=== PATIENT | female | born 1940 | race Caucasian/White ===

== ENCOUNTER 2019-02-26 22:51 | Emergency (ER) | payer MEDICARE ==
[2019-02-26] MEDS ORDERED: ACETAMINOPHEN 325 MG TABLET PO ONE (23:01)
[2019-02-27] MEDS ORDERED: MORPHINE SULFATE 10 MG/ML INJ IV ONE (02:17)
--- NOTE | 2019-02-27 02:23 | ER Document Report ---
ED General - General Chief Complaint: Hip Pain Stated Complaint: BACK PAIN Time Seen by Provider: 02/27/19 02:10 TRAVEL OUTSIDE OF THE [place] IN LAST 30 DAYS: No - HPI Notes: 78-year-old female presents with gradual onset 1 day of left lateral hip pain that radiates down her leg. Actually comes more from her buttocks and posterior hip region. Radiates down to her ankle. No current history of sciatica. Moderate intensity, sharp, nonradiating except as described. Over the course of the last several hours she is also developed bilateral lower quadrant and mid abdominal pain. Moderate intensity, cramping achy and sharp. No other modifying factors, no other associated symptoms, no other provocative or palliative factors. No associated vomiting or diarrhea. Triage note indicates she was incontinent but she indicates that she had use the bathroom and had difficulty getting there because of the pain and had to urinate on herself. No numbness or tingling. No other modifying factors, no other associated symptoms, no other provocative or palliative factors. - Related Data Allergies/Adverse Reactions: adhesive tape Adverse Reaction (Intermediate, Verified 02/27/19 00:58) Skin Redness Past Medical History - Social History Smoking Status: Never Smoker Family History: Reviewed & Not Pertinent Patient has suicidal ideation: No Patient has homicidal ideation: No - Medical History Notes: Includes prior kidney stones, hysterectomy Renal/ Medical History: Denies: Hx Peritoneal Dialysis Review of Systems - Review of Systems Notes: Review of systems as in the history of present illness, otherwise negative x 10 systems. Physical Exam - Vital signs Vitals: Temp Pulse Resp BP Pulse Ox 98.0 F 70 20 234/97 H 97 02/26/19 22:58 02/26/19 22:58 02/26/19 22:58 02/26/19 22:58 02/26/19 22:58 - Notes Notes: General: Well developed . HEENT: Normocephalic, atraumatic. Pupils equal round reactive to light. No JVD. Chest: No trauma. Respiratory: Good air exchange, normal excursion. Cardiac: Regular rhythm. No murmurs or gallops. Abdomen: Soft, benign. Mild to moderate bilateral lower quadrant tenderness. There is irritation in the pannus fold. Large pannus is noted. Back: No asymmetry or gross abnormality. No point vertebral tenderness, no CVAT. Motor: Grossly normal power and tone. Neurologic: Alert, nonfocal. Cranial nerves II-12 are intact. Sensation intact. Bilateral lower extremity sensation intact, DTRs 1+ symmetric. Vascular: Well perfused. Normal peripheral pulses. Skin: No petechiae or purpura. Course - Vital Signs Vital signs: Temp Pulse Resp BP Pulse Ox 98.0 F 70 20 206/79 H 98 02/26/19 22:58 02/26/19 22:58 02/26/19 22:58 02/27/19 06:02 02/27/19 06:02 - Laboratory Result Diagrams: 02/27/19 02:45 02/27/19 02:45 Laboratory results interpreted by me: 02/27/19 02/27/19 02/27/19 02:45 02:45 03:45 Plt Count 99 L Glucose 116 H Total Bilirubin 1.5 H AST 57 H Urine Protein 100 H Urine Blood SMALL H Ur Leukocyte Esterase SMALL H - Transfer of Care Notes: 02/27/19 02:21 Elderly female with the mentioned symptoms. With regard to her leg issues, appears to be a classic description of sciatica. Would consider occult hip fracture injury. Otherwise no high risk features to suggest cord compression or cord issue. Of concern however is her significantly uncontrolled hypertension in the face of abdominal pain and the other symptoms. Will consider vascular pathology such as dissection or aneurysm. Plan to proceed with laboratory evaluation, CT imaging, IV analgesics, plain films of the hip, reassess. Consider additionally pyelonephritis or renal stone. 02/27/19 06:20 Labs reviewed. CBC unremarkable, chemistries unremarkable. Urine shows no evidence of acute infection. Patient did undergo CT imaging to rule out dissection or AAA. There is no evide nce of vascular emergency. No evidence of intra-abdominal emergency. No evidence of stone or other infectious process. No evidence of hip fracture. Patient has had substantial improvement with analgesics. She will exam showed benign examination. Abdominal pain is improved. This point etiology is unclear, however, I think she is safe for discharge home with close outpatient follow-up. Will have a recheck 1224 hrs. Given a short course of analgesics for what appears to clinically be sciatica. With regard to her abdominal pain, continue to examination shows benign abdomen and as stated, CT imaging shows no acute abnormality. Discharge - Discharge Clinical Impression: Sciatica Qualifiers: Laterality: unspecified laterality Qualified Code(s): M54.30 - Sciatica, unspe cified side Abdominal pain Qualifiers: Abdominal location: unspecified location Qualified Code(s): R10.9 - Unspecified abdominal pain Condition: Stable Disposition: HOME, SELF-CARE Instructions: Abdominal Pain ([facility]), Sciatica ([facility]) Prescriptions: Tramadol HCl [Ultram 50 mg Tablet] 50 mg PO Q6 PRN #12 tablet PRN Reason:
[2019-02-27 03:12] LABS: ALBUMIN 3.9 g/dL (3.5-5.0); ALKALINE PHOSPHATASE 110 U/L (38-126); ANION GAP 10 (5-19); ASPARTATE AMINO TRANSFERASE 57 U/L (14-36); BILIRUBIN,DIRECT 0.3 mg/dL (0.0-0.4); BILIRUBIN,TOTAL 1.5 mg/dL (0.2-1.3); BLOOD UREA NITROGEN 12 mg/dL (7-20); CARBON DIOXIDE 24 mmol/L (22-30); CHLORIDE 106 mmol/L (98-107); GLUCOSE 116 mg/dL (75-110); POTASSIUM 4.1 mmol/L (3.6-5.0); TOTAL PROTEIN 7.1 g/dL (6.3-8.2)
[2019-02-27 03:16] LABS: ABSOLUTE EOSINOPHILS # (AUTO) 0.2 10^3/uL (0.0-0.6); ABSOLUTE LYMPHOCYTES (AUTO) 1.2 10^3/uL (0.5-4.7); ABSOLUTE MONOCYTES (AUTO) 0.4 10^3/uL (0.1-1.4); ABSOLUTE NEUT (AUTO) 3.6 10^3/uL (1.7-8.2); BASOPHILS % (AUTO) 0.4 % (0-2); EOSINOPHILS % (AUTO) 3.4 % (0-6); HEMATOCRIT 42.4 % (36.0-47.0); HEMOGLOBIN 14.6 g/dL (12.0-15.5); LYMPHOCYTES % (AUTO) 22.7 % (13-45); MEAN CORPUSCULAR HEMOGLOBIN 31.2 pg (27.0-33.4); MEAN CORPUSCULAR HGB CONC 34.5 g/dL (32.0-36.0); MEAN CORPUSCULAR VOLUME 90 fl (80-97); MONOCYTES % (AUTO) 7.5 % (3-13); RED BLOOD COUNT 4.68 10^6/uL (3.72-5.28); RED CELL DISTRIBUTION WIDTH 13.7 % (11.5-14.0); TOTAL CELLS COUNTED % (AUTO) 100 %; WHITE BLOOD COUNT 5.4 10^3/uL (4.0-10.5)
[2019-02-27 03:38] LABS: PLATELET COUNT 99 10^3/uL (150-450)
[2019-02-27 04:27] LABS: APPEARANCE,URINE SLIGHTLY-CLOUDY; BILIRUBIN,URINE NEGATIVE (NEGATIVE); COLOR,URINE YELLOW; GLUCOSE, URINE NEGATIVE (NEGATIVE); KETONES,URINE NEGATIVE (NEGATIVE); LEUKOCYTE ESTERASE,URINE SMALL (NEGATIVE); NITRITE,URINE NEGATIVE (NEGATIVE); PROTEIN,URINE 100 mg/dL (NEGATIVE); URINE SPECIFIC GRAVITY 1.005; UROBILINOGEN,URINE NEGATIVE mg/dL (<2.0)
--- NOTE | 2019-02-27 04:35 | RADIOLOGY REPORT (SQ) ---
CLINICAL HISTORY: Lower AP, HTN, eval for AAA or dissection COMPARISON: None. TECHNIQUE: CT CHEST ANGIOGRAPHY WITHOUT THEN WITH IV CONTRAST, CT ABDOMEN PELVIS WITHOUT THEN WITH IV CONTRAST on 02/27/2019 12:00 AM CDT. MIPS reconstructions were generated. This exam was performed according to our departmental dose-optimization program, which includes automated exposure control, adjustment of the mA and/or kV according to patient size and/or use of iterative reconstruction technique. FINDINGS: Vascular: Thoracic aorta is normal in course and caliber without aneurysm or dissection. Pulmonary arteries are adequately opacified without acute or chronic filling defects. Abdominal aorta is normal in course and caliber without aneurysm. Pelvic arteries are patent without aneurysm or occlusion. The heart is normal in size. There is no pericardial effusion. Intrathoracic lymph nodes are not enlarged. There is no pleural effusion, pleural thickening or pneumothorax. Central airways are patent. There is a small calcified granuloma in the anterior left lower lobe. There is a small cyst in the lower aspect of the lingula. Abdomen: Liver is cirrhotic in morphology. There is no biliary dilatation. Spleen is enlarged measuring 15.4 cm. There are multiple paraesophageal there is a spur. Adrenal glands are normal. Kidneys are mildly atrophic. There is mild fullness of both renal collecting systems proximally with no clear obstructing lesions. There is no free air. There is no retroperitoneal adenopathy. Pelvis: There is a distal fecal impaction. Urinary bladder is unremarkable. There is no free fluid. Hysterectomy was performed. Appendix is not clearly seen. Skeleton: There are no acute osseous findings. No suspicious bony lesions. IMPRESSION: No acute inflammatory process. No aortic dissection or aneurysm. No pulmonary embolus. 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
[2019-02-27 06:04] VITALS: BP 206/79
[2019-02-27] MEDS ORDERED: TRAMADOL HCL 50 MG TABLET PO ONE (06:18)
== END 2019-02-27 06:29 | disposition home or self-care (01) ==
LOC: ER 22:51
DX: M54.30 Sciatica, unspecified side (principal); R10.9 Unspecified abdominal pain; R10.31 Right lower quadrant pain; R10.32 Left lower quadrant pain; M25.552 Pain in left hip; Z87.442 Personal history of urinary calculi; Z90.710 Acquired absence of both cervix and uterus; R10.813 Right lower quadrant abdominal tenderness; R10.814 Left lower quadrant abdominal tenderness; I10 Essential (primary) hypertension
CPT/HCPCS: 36415; 85025; 80053; 81001; 71275; 74174; A9270 ×2; J2270

== ENCOUNTER 2019-03-01 13:33 | Emergency (ER) | payer MEDICARE ==
[2019-03-01] MEDS ORDERED: MORPHINE SULFATE 10 MG/ML INJ IV ONE (14:16)
--- NOTE | 2019-03-01 14:22 | ER Document Report ---
ED Medical Screen (RME) - General Chief Complaint: Back Pain Stated Complaint: BACK PAIN Time Seen by Provider: 03/01/19 14:00 Notes: Patient is a 78-year-old female with a history of hypertension who presents to the emergency department with a chief complaint of left lower back pain that radiates down the left leg. Patient states this has been ongoing for 1 month but has progressively gotten worse. Patient states she was seen here on Wednesday night for the same type of pain. Patient states that at that time she was having urinary incontinence which is new for her. Patient denies loss of bowel function. Patient states that the pain is worse with sitting and movement. Patient does have a history of chronic UTIs in which she did start Macrobid on Wednesday. Patient states that the Macrobid is not helping with her symptoms. Patient states she was given Ultram only helps with her pain slightly. Patient denies injury or fall. TRAVEL OUTSIDE OF THE [place] IN LAST 30 DAYS: No - Related Data Allergies/Adverse Reactions: adhesive tape Adverse Reaction (Intermediate, Verified 03/01/19 13:35) Skin Redness Past Medical History - Social History Frequency of alcohol use: None Drug Abuse: None - Past Medical History Cardiac Medical History: Reports: Hx Hypertension Renal/ Medical History: Reports: Hx Kidney Stones. Denies: Hx Peritoneal Dialysis Musculoskeltal Medical History: Reports Hx Arthritis Past Surgical History: Reports: Hx Appendectomy, Hx Cholecystectomy, Hx Hysterectomy, Hx Orthopedic Surgery - bilateral knee replacement Physical Exam - Vital signs Vitals: Temp Pulse Resp BP Pulse Ox 98.1 F 58 L 20 211/85 H 97 03/01/19 13:39 03/01/19 13:39 03/01/19 13:39 03/01/19 13:39 03/01/19 13:39 Interpretation: Hypertensive - Abdominal Inspection: Normal Distension: No distension Bowel sounds: Normal Tenderness: Nontender Organomegaly: No organomegaly - Back Notes: No spinal tenderness, patient is able to ambulate with cane. No CVA tenderness. Course - Re-evaluation Re-evalutation: 03/01/19 14:20 Patient is hypertensive in triage but is nontoxic-appearing. Patient states she was seen here on Wednesday for the same symptoms. I did confirm with the patient that the urinary incontinence was also present on Wednesday. I have greeted and performed a rapid initial assessment of this patient. A comprehensive ED assessment and evaluation of the patient, analysis of test results and completion of the medical decision making process will be conducted by additional ED providers. - Vital Signs Vital signs: Temp Pulse Resp BP Pulse Ox 98.1 F 58 L 20 211/85 H 97 03/01/19 13:39 03/01/19 13:39 03/01/19 13:39 03/01/19 13:39 03/01/19 13:39
[2019-03-01 17:55] LABS: APPEARANCE,URINE SLIGHTLY-CLOUDY; BILIRUBIN,URINE NEGATIVE (NEGATIVE); GLUCOSE, URINE NEGATIVE (NEGATIVE); KETONES,URINE 20 mg/dL (NEGATIVE); LEUKOCYTE ESTERASE,URINE LARGE (NEGATIVE); NITRITE,URINE POSITIVE (NEGATIVE); PROTEIN,URINE 30 mg/dL (NEGATIVE); URINE SPECIFIC GRAVITY 1.019; UROBILINOGEN,URINE NEGATIVE mg/dL (<2.0)
[2019-03-01] MEDS ORDERED: DIAZEPAM 2 MG TABLET PO ONE ×2 (17:59→21:59)
[2019-03-01] MEDS ORDERED: DEXAMETHASONE SOD PHOS INJ 10 MG/1 ML VIAL IV ONE (18:03)
[2019-03-01 18:05] LABS: COLOR,URINE YELLOW
[2019-03-01] MEDS ORDERED: NORMAL SALINE 500 ML IV ONE (18:07)
[2019-03-01 18:52] LABS: ABSOLUTE EOSINOPHILS # (AUTO) 0.1 10^3/uL (0.0-0.6); ABSOLUTE MONOCYTES (AUTO) 0.3 10^3/uL (0.1-1.4); ABSOLUTE NEUT (AUTO) 3.7 10^3/uL (1.7-8.2); BASOPHILS % (AUTO) 0.7 % (0-2); HEMATOCRIT 42.9 % (36.0-47.0); HEMOGLOBIN 14.7 g/dL (12.0-15.5); LYMPHOCYTES % (AUTO) 19.4 % (13-45); MEAN CORPUSCULAR HGB CONC 34.3 g/dL (32.0-36.0); MEAN CORPUSCULAR VOLUME 90 fl (80-97); MONOCYTES % (AUTO) 5.4 % (3-13); PLATELET COUNT 102 10^3/uL (150-450); RED BLOOD COUNT 4.76 10^6/uL (3.72-5.28); RED CELL DISTRIBUTION WIDTH 13.4 % (11.5-14.0); SEGMENTED NEUTROPHILS % (AUTO) 72.5 % (42-78); TOTAL CELLS COUNTED % (AUTO) 100 %; WHITE BLOOD COUNT 5.2 10^3/uL (4.0-10.5)
[2019-03-01 18:58] LABS: BLOOD UREA NITROGEN 12 mg/dL (7-20); CALCIUM 9.1 mg/dL (8.4-10.2); GLUCOSE 108 mg/dL (75-110)
[2019-03-01 18:59] LABS: ALBUMIN 3.9 g/dL (3.5-5.0); ALKALINE PHOSPHATASE 104 U/L (38-126); ANION GAP 8 (5-19); ASPARTATE AMINO TRANSFERASE 61 U/L (14-36); BILIRUBIN,DIRECT 0.3 mg/dL (0.0-0.4); BILIRUBIN,TOTAL 1.3 mg/dL (0.2-1.3); CARBON DIOXIDE 30 mmol/L (22-30); CHLORIDE 101 mmol/L (98-107); POTASSIUM 4.3 mmol/L (3.6-5.0); TOTAL PROTEIN 7.5 g/dL (6.3-8.2)
[2019-03-01] MEDS ORDERED: CEFTRIAXONE 1 GM/D5W RTU 1 GM/50 ML RTUPB IV ONE (19:59)
--- NOTE | 2019-03-01 20:22 | RADIOLOGY REPORT (SQ) ---
MR LUMBAR SPINE WITHOUT IV CONTRAST HISTORY: Back pain. Right-sided sciatica. Urinary incontinence. COMPARISON: None. TECHNIQUE: Multiplanar, multisequence MR imaging of the lumbar spine was performed without the administration of intravenous gadolinium. FINDINGS: The conus is normal in appearance and position. The normal lumbar lordosis is preserved. No expansile or destructive osseous lesions are seen. The sacroiliac joints are intact. Bilateral peripelvic cysts are visualized. Evaluation of the disc spaces is as follows: L1-L2: No disc protrusion, canal stenosis, or foraminal stenosis. L2-L3: No disc protrusion, canal stenosis, or foraminal stenosis. L3-L4: Broad-based disc bulge with mild facet arthropathy results in mild canal narrowing. No foraminal narrowing. L4-L5: Broad-based disc bulge with moderate facet arthropathy results in mild canal narrowing and mild bilateral foraminal narrowing. L5-S1: No disc protrusion. Bilateral facet arthropathy results in mild canal narrowing. Mild to moderate bilateral foraminal narrowing. IMPRESSION: 1. Mild multilevel degenerative disc disease throughout the lumbar spine. 2. No high-grade canal or foraminal stenosis. 3. Unremarkable cauda equina nerve roots.
[2019-03-01] MEDS ORDERED: HYDROCODONE/ACETAMINOPHEN 5-325 MG (6 TAB/ER DISP) PO PRN (21:30)
[2019-03-01 22:17] VITALS: BP 160/85
--- NOTE | 2019-03-02 14:48 | ER Document Report ---
Entered by VEL VASQUEZ SCRIBE 03/01/19 1805 Acting as scribe for:ALONDRA JOY DO ED Neck/Back Problem - General Chief Complaint: Back Pain Stated Complaint: BACK PAIN Time Seen by Provider: 03/01/19 14:00 Mode of Arrival: Ambulatory Information source: Patient Notes: Patient is a 78 year old female that presents to the emergency department today with complaints of lower back pain that radiates down her leg for the last x4 days. Patient states that she is here visiting from [place]. Patient states she has not had any strenuous activity or trauma to this area other than packing her belongings prior to the trip. Patient states the pain seems to be positional and is exacerbated if she tries to sit up and is relieved by lying supine. Patient has a history of sciatica and she states the pain today is similar to that although the pain radiates further down her leg tonight than it has previously. Patient has had urinary frequency but denies any dysuria or fevers. TRAVEL OUTSIDE OF THE [place] IN LAST 30 DAYS: No - Related Data Allergies/Adverse Reactions: adhesive tape Adverse Reaction (Intermediate, Verified 03/01/19 13:35) Skin Redness Past Medical History - General Information source: Patient - Social History Smoking Status: Never Smoker Cigarette use (# per day): No Frequency of alcohol use: None Drug Abuse: None Lives with: Family Family History: Reviewed & Not Pertinent Patient has suicidal ideation: No Patient has homicidal ideation: No - Past Medical History Cardiac Medical History: Reports: Hx Hypertension Renal/ Medical History: Reports: Hx Kidney Stones Musculoskeletal Medical History: Reports Hx Arthritis Past Surgical History: Reports: Hx Appendectomy, Hx Cholecystectomy, Hx Hysterectomy, Hx Orthopedic Surgery - bilateral knee replacement Review of Systems - Review of Systems Constitutional: denies: Fever EENT: No symptoms reported Cardiovascular: No symptoms reported Respiratory: No symptoms reported Gastrointestinal: No symptoms reported Genitourinary: See HPI, Frequency. denies: Dysuria Female Genitourinary: No symptoms reported Musculoskeletal: See HPI, Back pain - radiating down her leg Skin: No symptoms reported Hematologic/Lymphatic: No symptoms reported Neurological/Psychological: No symptoms reported -: Yes All other systems reviewed and negative Physical Exam - Vital signs Vitals: Temp Pulse Resp BP Pulse Ox 98.1 F 58 L 20 211/85 H 97 03/01/19 13:39 03/01/19 13:39 03/01/19 13:39 03/01/19 13:39 03/01/19 13:39 Interpretation: Hypertensive - General General appearance: Alert, Other - Appears uncomfortable - HEENT Head: Normocephalic, Atraumatic Eyes: Normal Pupils: PERRL Pharynx: Normal Neck: Normal - Respiratory Respiratory status: No respiratory distress Chest status: Nontender Breath sounds: Normal Chest palpation: Normal - Cardiovascular Rhythm: Regular Heart sounds: Normal auscultation Murmur: No - Abdominal Inspection: Normal Distension: No distension Bowel sounds: Normal Tenderness: Nontender Organomegaly: No organomegaly - Back Back: Normal, Tender - L paraspinal TTP lower back over L3-L5 L buocck TTP - Extremities General upper extremity: Normal inspection, Nontender, Normal color, Normal ROM, Normal temperature General lower extremity: Normal inspection, Tender, Normal color, Normal ROM, Normal temperature, Other - Equal toe raise, dorsi/plantar flexion of foot. Strength 5/5 t/o, +straight leg raise on L. No: Dominic's sign - Neurological Neuro grossly intact: Yes Cognition: Normal Orientation: AAOx4 Elizabeth Coma Scale Eye Opening: Spontaneous [place] Coma Scale Verbal: Oriented Elizabeth Coma Scale Motor: Obeys Commands [place] Coma Scale Total: 15 Speech: Normal Motor strength normal: LUE, RUE, LLE, RLE Sensory: Normal, Other - No saddle anesthesia, SILT t/o - Psychological Associated symptoms: Normal affect, Normal mood - Skin Skin Temperature: Warm Skin Moisture: Dry Skin Color: Normal Course - Re-evaluation Re-evalutation: 03/01 Patient is a 78-year-old female who was seen here Wednesday for back pain. Patient has had increasing left-sided back pain. She has full strength and range of motion. No saddle anesthesia. Patient has been taking Ultram but states that the pain is still going down her leg on the left. Patient has had difficulty getting up fast enough to pee and has been wearing a diaper. She is now having issues with incontinence. MRI done with no evidence for cauda equina but large disc herniation around L4-L5. This goes along with patient's symptoms. Her pain seems best controlled with Valium. She has been given a dose of steroids here. No emergent surgical intervention needed for her back at this time. She is been caught given a copy of her report as well as the CD with her MRI on it. Patient also has a urinary tract infection. Urine has been sent for culture she has been given Rocephin here and will be discharged home with Keflex. She is to call her doctor in the morning for an appointment and is to follow-up with a spine surgeon when she gets back to her home [facility]. She is ag reeable to this plan and understands and agrees with this plan. Stable at the time of discharge. I have had a very lengthy conversation with her family regarding her symptoms and this plan. - Vital Signs Vital signs: Temp Pulse Resp BP Pulse Ox 97.8 F 34 L 18 160/85 H 97 03/01/19 22:16 03/01/19 22:16 03/01/19 22:16 03/01/19 22:16 03/01/19 22:16 - Laboratory Result Diagrams: 03/01/19 18:27 03/01/19 18:27 Laboratory results interpreted by me: 03/01/19 03/01/19 03/01/19 17:33 18:27 18:27 Plt Count 102 L AST 61 H Urine Protein 30 H Urine Ketones 20 H Urine Nitrite POSITIVE H Ur Leukocyte Esterase LARGE H Urine Ascorbic Acid 40 H - Diagnostic Test Radiology reviewed: Reports reviewed Discharge - Discharge Clinical Impression: Disc herniation Qualifiers: Spinal region: lumbosacral Qualified Code(s): M51.27 - Other intervertebral disc displacement, lumbosacral region Sciatica Qualifiers: Laterality: left Qualified Code(s): M54.32 - Sciatica, left side UTI (urinary tract infection) Qualifiers: Urinary tract infection type: site unspecified Hematuria presence: with hematuria Qualified Code(s): N39.0 - Urinary tract infection, site not specified; R31.9 - Hematuria, unspecified Condition: Stable Disposition: HOME, SELF-CARE Instructions: Herniated Disc ([facility]), Sciatica ([facility]), Urinary Tract Infection ([facility]) Additional Instructions: Please take the copy of your disc with you when you follow-up with your doctor. Please call for your urine culture results: [phone]. Prescriptions: Cephalexin Monohydrate [Keflex 500 mg Capsule] 500 mg PO Q6H 10 Days capsule Diazepam [Valium 5 mg Tablet] 5 mg PO TIDP PRN #9 tablet PRN Reason: Methylprednisolone [Medrol Dosepack (4 mg/Tab) 21 Tab/Dosepak] 4 mg PO ASDIR PRN #21 [id number] PRN Reason: Scribe Attestation: 03/02/19 14:48 I personally performed the services described in the documentation, reviewed and edited the documentation which was dictated to the scribe in my presence, and it accurately records my words and actions. I personally performed the services described in the documentation, reviewed and edited the documentation which was dictated to the scribe in my presence, and it accurately records my words and actions.
== END 2019-03-01 22:25 | disposition home or self-care (01) ==
LOC: ER 13:33
DX: Z53.21 Procedure and treatment not carried out due to patient leaving prior to being seen by health care provider (principal); M54.9 Dorsalgia, unspecified; M79.605 Pain in left leg; I10 Essential (primary) hypertension
CPT/HCPCS: 36415; 85025; 80053; 81001; 72148; A9270 ×2; J2270; J7040; J0696; J1100; 87086; 87088; J3490